=== PATIENT | female | born 2000 | race Caucasian/White ===

== ENCOUNTER 2024-04-23 06:08 | Inpatient (IN) | payer OTHER ==
[~2024-04-23] VITALS: Ht 160 cm; Wt 93.2 kg
[2024-04-23] VITALS (62 sets, daily range): BP systolic 93–145; BP diastolic 50–91; PULSE 65–97; TEMP 98.1–98.3
[~2024-04-23 06:08] MED LIST: PNV-SELECT1 TAB PO
[2024-04-23] MEDS ORDERED: LR & Oxytocin 500 ML IV SCH ×2 (06:15)
[2024-04-23] MEDS ORDERED: LR 1,000 ML IV PRN (06:15)
[2024-04-23] MEDS ORDERED: LR 1,000 ML IV SCH ×2 (06:15→17:45)
[2024-04-23] MEDS ORDERED: UNISOM25 MG PO (06:58)
[2024-04-23 07:25] LABS: BASO # 0.1 K/mm3 (0.0-0.2); BASO % 0.5 % (0.0-2.0); EOS # 0.1 K/mm3 (0.0-0.7); EOS % 1.5 % (0.0-4.0); GRAN # 6.1 K/mm3 (1.4-6.5); GRAN % 65.3 % (42.2-75.2); HEMATOCRIT 32.7 % (37.0-47.0); HEMOGLOBIN 10.5 g/dl (12.5-16.0); LYMPH # 2.5 K/mm3 (1.2-3.4); LYMPH % 26.8 % (20.0-51.0); MEAN CELL VOLUME 75 fl (80.0-100.0); MEAN CORPUSCULAR HEMOGLOBIN 24 pg (27-31); MEAN CORPUSCULAR HGB CONC 32 g/dl (33.0-37.0); MONO # 0.5 K/mm3 (0.1-0.6); MONO % 5.1 % (1.7-9.3); PLATELET COUNT 326 K/mm3 (130-400); RED BLOOD COUNT 4.37 M/mm3 (4.10-5.30); REDCELL DISTRIBUTION WIDTH-CV 14.3 % (11.5-14.5)
--- NOTE | 2024-04-23 07:28 | NUR ---
0728- DR BEE AT BEDSIDE TALKING WITH PT. ULTRASOUND DONE AT THIS TIME TO CONFIRM BABY IS VERTEX. 5286- DR BEE PLACES A COOKS BALLOON. 80ML ON THE UTERINE SIDE, AND 80MLS ON THE VAGINAL SIDE.
[2024-04-23 07:45] LABS: ALBUMIN 2.6 g/dL (3.5-5.0); BILIRUBIN,TOTAL 0.2 mg/dL (0.2-1.2); CREATININE, serum 0.63 mg/dL (0.57-1.11); POTASSIUM 3.9 mEq/L (3.5-4.5); TOTAL PROTEIN 7.1 g/dl (6.2-8.1)
--- NOTE | 2024-04-23 08:50 | NUR ---
CALLED DR BEE DUE TO PT REQUESTED EPIDURAL. I DID TALK WITH THE PT ABOUT TRYING IV PAIN MEDS FIRST, AND SHE AGREED TO THAT. DR BEE SAID YES, LETS TRY THE PAIN MEDICATION FIRST. THEN ORDERED 2 MG OF STATOL IV.
[2024-04-23] MEDS ORDERED: Ondansetron 4 MG/2 ML VIAL IV ONE (12:15)
[2024-04-23] MEDS ORDERED: ROPivacaine PF 0.2% 200 ML IV ONE (17:12)
--- NOTE | 2024-04-23 17:37 | NUR ---
1717 SUBHA AT BEDSIDE DISCUSSING EPIDURAL RISKS. BP AND O2 MONITORS ON. PT SEATED AT THE SIDE OF THE BED AND AGREES TO EPIDURAL. 1723 SINGLE SHOT. 1733 PT REPOSITIONED TO WEDGE RIGHT. VS WNL. PT TOLERATED PROCEEDURE WELL. DIFFICULTY TRACING FHT DURRING THIS TIME.
[2024-04-23] MEDS ORDERED: diphenhydrAMINE 50 MG/ML 1 ML VIAL IV PRN (17:45)
[2024-04-23] MEDS ORDERED: LR 500 ML IV PRN (17:45)
[2024-04-23] MEDS ORDERED: ePHEDrine 50 MG/10 ML VIAL IV PRN (17:45)
[2024-04-23] MEDS ORDERED: diphenhydrAMINE 25 MG CAP PO PRN (17:45)
[2024-04-23] MEDS ORDERED: Naloxone 0.4 MG/ML VIAL IV PRN (17:45)
[2024-04-23] MEDS ORDERED: Ondansetron 4 MG/2 ML VIAL IV PRN (17:45)
--- NOTE | 2024-04-23 19:05 | NUR ---
PT REQUESTED A MEDICATION FOR HEARTBURN. DR BEE ON UNIT GAVE VERBAL ORDER FOR PROTONIX 20 MG.
[2024-04-23] MEDS ORDERED: NS IV ONE (19:15)
[2024-04-23] MEDS ORDERED: [UNRECOGNIZED DRUG - OTHER] IV ONE (19:15)
[2024-04-23] MEDS ORDERED: PANTOPRAZOLE IV ONE (19:15)
[2024-04-23] MEDS ORDERED: Pantoprazole 40 MG in NS 10 ML IV SCH (19:30)
[2024-04-24] VITALS (50 sets, daily range): BP systolic 89–143; BP diastolic 50–96; PULSE 68–113; TEMP 97.8–98.1
--- NOTE | 2024-04-24 02:00 | NUR ---
0130- PT STATES SHE IS FEELING HER CTXs AGAIN, ENCOURAGED PT TO USE EPIDURAL BUTTON. PT STATES HER PAIN IS IN THE LOWER ABDOMEN AND BACK. PT REPOSITIONED TO SEMIFOWLERS AND PT PUSHES HER EPIDURAL BUTTON. PT INSTRUCTED TO PRESS HER CALL LIGHT IN 15 MINUTES IF PAIN HAS NOT IMPROVED. 0148- THIS NURSE RETURNS TO ROOM, PT STATES HER PAIN IS 10/10 IN HER LOWER ABDOMEN AND BACK. INSTRUCTED PT TO PUSH HER EPIDURAL BUTTON AGAIN. IF IN 15 MORE MINTUES SHE HAS NO RELIEF THIS NURSE WILL CONTACT [employer] INSULATOR TO COME EVALUATE THE EPIDURAL. PT PUSHES EPIDURAL BUTTON. 0150- INTERMITTENT LATE DECELS NOTED, SVE 7/90/-2. PT REPOSITIONED WITH A LEFT WEDGE. 0215- PT CONTINUES TO RATE PAIN AT 10/10. REPOSITIONED TO LEFT LATERAL PER PT REQUEST. ONCE PT TURNED THIS NURSE INSPECTS EPIDURAL, TAPE IS ROLLED UP AND A LOOP OF THE EPIDURAL CATHETER IS EXPOSED. Piedad QUIGLEY CRNA NOTIFIED THAT THE CATHETER MAY NO LONGER HAVE THE CORRECT PLACEMENT. Piedad QUIGLEY CRNA WILL COME IN TO EVALUATE AND REPLACE EPIDURAL IF NECESSARY. 0240- RADHA HODGES IN ROOM TO EVALUATE, DETERMINES THAT CATHETER IS NO LONGER IN PLACE AND THE EPIDURAL WITH NEED TO BE REPLACED. PT AGREES TO REPLACEMENT. PT ASSISTED TO SITTING POSITION FOR EPIDURAL PLACEMENT. 0248- SINGLE SHOT PLACED BY RADHA HODGES. PT TOLERATED WELL. SEE ANETHESIA RECORD.
--- NOTE | 2024-04-24 06:55 | NUR ---
0655 AT BEDSIDE. FHR TRACING REVIEWED. PLAN OF CARE UPDATED. 0656 SVE 0. 0657 DISCUSSION BETWEEN PATIENT PROVIDER ABOUT CURRENT OPTIONS. PROVIDER DICUSSES THAT AT THIS TIME HE IS OKAY WITH CONTINUING WITH LABOR, BUT AT SOME POINT IF SHE DOES NOT CONTINUE TO PROGRESS WOULD NEED TO DISCUSS OTHER METHODS OF DELIVERY WITH HER. AT THIS TIME PATIENT REQUESTS A SECTION. IN AGREEANCE.
[2024-04-24] MEDS ORDERED: Chloroprocaine PF 3% (30 MG/ML) 20 ML VIAL ONE (07:17)
[2024-04-24] MEDS ORDERED: Methylergonovine 0.2 MG/ML 1 ML AMPUL ONE (07:23)
[2024-04-24] MEDS ORDERED: Azithromycin 500 MG VIAL IV ONE (07:25)
[2024-04-24] MEDS ORDERED: NS 250 ML IV ONE (07:26)
[2024-04-24] MEDS ORDERED: Phenylephrine 10 MG/ML VIAL ONE (07:30)
[2024-04-24] MEDS ORDERED: Ketorolac 30 MG/ML VIAL ONE (07:46)
[2024-04-24] MEDS ORDERED: dexAMETHasone 10 MG/ML VIAL ONE (07:58)
[2024-04-24] MEDS ORDERED: NS 10 ML IV ONE (07:58)
[2024-04-24] MEDS ORDERED: Loratadine 10 MG TAB PO PRN (08:30)
[2024-04-24] MEDS ORDERED: Magnes Hydrox (MOM) 80 MG/ML 30 ML CUP PO PRN (08:30)
[2024-04-24] MEDS ORDERED: Acetaminophen 500 MG TAB PO SCH (09:15)
[2024-04-24] MEDS ORDERED: Ondansetron 4 MG/2 ML VIAL IV PRN (09:15)
[2024-04-24] MEDS ORDERED: Measles/Mumps/Rubella Virus Vaccine Live w Diluent 0.5 ML VIAL SQ SCH (09:15)
[2024-04-24] MEDS ORDERED: oxyCODONE 5 MG TAB PO PRN (09:15)
[2024-04-24] MEDS ORDERED: LR 1,000 ML IV PRN (09:15)
[2024-04-24] MEDS ORDERED: Naloxone 0.4 MG/ML VIAL IV PRN (09:15)
[2024-04-24] MEDS ORDERED: Tdap Vaccine 0.5 ML SYRINGE IM SCH (09:15)
[2024-04-24] MEDS ORDERED: Morphine 4 MG/ML VIAL IV PRN (09:15)
[2024-04-24] MEDS ORDERED: Pantoprazole 40 MG in NS 10 ML IV ONE (09:15)
[2024-04-24] MEDS ORDERED: Ibuprofen 600 MG TAB PO SCH (14:22)
--- NOTE | 2024-04-24 15:32 | NUR ---
1532 PATIENT ASSISTED TO SETUP AND DANGLE AT EDGE OF BED. EPIDURAL CATHETER REMOVED. 1534 PATIENT ASSISTED X1 RN TO BATHROOM. 1535 SIMONS CATHETER REMOVED. PATIENT UNABLE TO VOID. PERICARE COMPLETED. PATIENT GOWN CHANGED. 1536 PATIENT ASSISTED X1 RN BACK TO BED.
[2024-04-24] MEDS ORDERED: Sennosides/Docusate 8.6-50 MG TAB PO SCH (17:00)
[2024-04-24] MEDS ORDERED: traZODone 50 MG TAB PO PRN (21:00)
[2024-04-25 03:40] VITALS: BP 106/70; PULSE 77; TEMP 98
[2024-04-25 06:29] LABS: HEMATOCRIT 24.6 % (37.0-47.0); HEMOGLOBIN 7.9 g/dl (12.5-16.0)
[2024-04-25 06:37] VITALS: BP 112/59; PULSE 74; TEMP 98.1
--- NOTE | 2024-04-25 06:37 | NUR ---
THIS RN NOTIFIED OF CRITCALLY LOW HGB. PATIENT VITALS OBTAINED AND FOUND TO BE WNL. ASSESSMENT OF PATIENT COMPLETED. NO CONCERNS AT THIS TIME.
[2024-04-25 06:46] LABS: ALBUMIN 2.1 g/dL (3.5-5.0); BILIRUBIN,TOTAL 0.2 mg/dL (0.2-1.2); CALCIUM 8.5 mg/dL (8.4-10.2); CREATININE, serum 0.64 mg/dL (0.57-1.11); POTASSIUM 3.7 mEq/L (3.5-4.5); TOTAL PROTEIN 5.6 g/dl (6.2-8.1)
--- NOTE | 2024-04-25 08:45 | NUR ---
PHYSICAN ON UNIT FOR ROUNDS. PHYSICAN NOTIFIED OF CRITCAL LAB VALUE. PROVIDER NOTIFIED THAT VITALS AND ASSESSMENT WERE COMPLETED FOLLOWING NOTIFICATION OF LAB VALUE. PROVIDER NOTIFIED THAT THERE WERE NO CONERNS, VITALS WERE STABLE AND FUNDUS FIRM. ORDERS FROM PROVIDER TO START 325 MG IRON SUPPLEMENT BID.
[2024-04-25] MEDS ORDERED: Ferrous Sulfate 325 MG TAB PO SCH (08:51)
[2024-04-25] MEDS ORDERED: IBU600 MG PO (09:35)
[2024-04-25] MEDS ORDERED: IRON TABLETS325 MG PO (09:35)
[2024-04-25] MEDS ORDERED: ROXICODONE 55 MG/TAB PO (09:36)
--- NOTE | 2024-04-25 12:30 | NUR ---
THIS RN RECEIVED REPORT FROM VIN GUZMAN. THIS RN ASSUMES CARE.
[2024-04-25 16:45] VITALS: BP 111/63; PULSE 79; TEMP 98.2
[2024-04-25 21:00] VITALS: BP 105/58; PULSE 79; TEMP 98.1
[2024-04-26 08:11] VITALS: BP 132/82; BP 139/90; PULSE 76; TEMP 97.8
[2024-04-26] MEDS ORDERED: TYLENOL 500MG500 MG PO (11:41)
== END 2024-04-26 12:30 | disposition home or self-care (01) | DRG 787 ==
LOC: LDR 06:08 → OB 06:08
PROVIDERS: ADMIT Obstetrics & Gynecology
PROC: 10D00Z1 Extraction of Products of Conception, Low, Open Approach (ICD-10-PCS; principal; 2024-04-23)
DX: O26.643 Intrahepatic cholestasis of pregnancy, third trimester (principal); D62 Acute posthemorrhagic anemia; Z3A.38 38 weeks gestation of pregnancy; Z37.0 Single live birth; O99.02 Anemia complicating childbirth
CPT/HCPCS: A9284; J0456; J0595; J0665; J1100; J1885; J2210; J2371; J2401; J2405; J2470; J2590; J2795; J7050; J7120